=== PATIENT | female | born 1940 ===

== ENCOUNTER 2017-02-08 10:29 | Emergency (ER) | payer MEDICARE, MEDICAID ==
[2017-02-08 10:59] VITALS: O2SAT 98
[2017-02-08] MEDS ORDERED: Sodium Chloride 0.9% 1,000 ML IV STA (11:06)
--- NOTE | 2017-02-08 11:12 | ED PDOC ---
HPI: Female Pain Time Seen by Provider: 02/08/17 10:59 Chief Complaint (Nursing): Abdominal Pain History Per: Patient Onset/Duration Of Symptoms: Days (2) Current Symptoms Are (Timing): Still Present Severity: Mild Pain Scale Rating Of: 1 Quality Of Discomfort: Burning Associated Symptoms: Urinary Symptoms. denies: Fever, Nausea, Vomiting Additional Complaint(s): Frequent urination assoc with mild dysuria since yesterday. Feels dehydrated. No NVD. No fever or back pain Past Medical History Vital Signs: Last Vital Signs Temp Pulse Resp BP Pulse Ox 98 02/08/17 10:57 - Medical History PMH: Anxiety, Depression, Gastritis, HTN - Surgical History Surgical History: Appendectomy, Cholecystectomy - Family History Family History: States: Unknown Family Hx - Home Medications Home Medications: Ambulatory Orders Medication Instructions Recorded Escitalopram [Lexapro] 10 mg PO DAILY 08/23/16 Lisinopril [Zestril] 10 mg PO DAILY 08/23/16 amLODIPine [Norvasc] 5 mg PO DAILY 08/23/16 Albuterol/Ipratropium [Duoneb 3 3 ml INH RQID #30 neb 08/26/16 mg/0.5 mg (3 ml) UD] Latanoprost 0.005% Opht [Xalatan 1 drop OU HS #1 bottle 08/26/16 Opht] Levofloxacin [Levaquin] 500 mg PO DAILY #7 tablet 08/26/16 Methylprednisolone [Medrol Dose 4 mg PO DAILY #21 mg 08/26/16 Pack (21 tabs)] Ciprofloxacin HCl [Cipro] 500 mg PO BID #20 tab 02/08/17 - Allergies Allergies/Adverse Reactions: Allergies Allergy/AdvReac Type Severity Reaction Status Date / Time aspirin Allergy RASH Verified 02/08/17 10:56 martinez Allergy RASH Verified 02/08/17 10:56 FISH Allergy RASH Verified 02/08/17 10:56 grape Allergy RASH Verified 02/08/17 10:56 Iodine and Iodide Containing Allergy RASH Verified 02/08/17 10:56 Produc elgin Allergy RASH Verified 02/08/17 10:56 nut - unspecified [nut] Allergy RASH Verified 02/08/17 10:56 ORANGE Allergy RASH Verified 02/08/17 10:56 Penicillins Allergy RASH Verified 02/08/17 10:56 Sulfa (Sulfonamide Allergy RASH Verified 02/08/17 10:56 Antibiotics) jello Allergy RASH Uncoded 11/12/15 10:04 Review of Systems ROS Statement: Except As Marked, All Systems Reviewed And Found Negative Constitutional: Negative for: Fever Gastrointestinal: Negative for: Abdominal Pain Genitourinary Female: Positive for: Dysuria, Frequency Physical Exam - Reviewed Nursing Documentation Reviewed: Yes Vital Signs Reviewed: Yes - Physical Exam Appears: Positive for: Non-toxic, No Acute Distress Head Exam: Positive for: ATRAUMATIC, NORMAL INSPECTION, NORMOCEPHALIC Skin: Positive for: Normal Color, Warm, DRY Eye Exam: Positive for: EOMI, Normal appearance, PERRL ENT: Positive for: Normal ENT Inspection Neck: Positive for: Normal, Painless ROM Cardiovascular/Chest: Positive for: Regular Rate, Rhythm Respiratory: Positive for: CNT, Normal Breath Sounds Gastrointestinal/Abdominal: Positive for: Normal Exam, Bowel Sounds, Soft Back: Positive for: Normal Inspection Extremity: Positive for: Normal ROM Neurologic/Psych: Positive for: Alert, Oriented - Laboratory Results Result Diagrams: 02/08/17 11:40 - ECG O2 Sat by Pulse Oximetry: 98 Disposition - Clinical Impression Clinical Impression: UTI (urinary tract infection) - Patient ED Disposition Is Patient to be Admitted: No - Disposition Referrals: [facility]] Disposition: Routine/Home Disposition Time: 12:19 Condition: FAIR Prescriptions: Ciprofloxacin HCl [Cipro] 500 mg PO BID #20 tab Instructions: Urinary Tract Infection in Women (ED)
[2017-02-08 11:59] LABS: BASO % 0.5 % (0.0-2.0); EOS # 0.3 K/uL (0.0-0.7); EOS % 3.8 % (0.0-4.0); HEMATOCRIT 40.8 % (34.0-47.0); LYMPH # 2.3 K/uL (1.0-4.3); LYMPH % 28.9 % (20.0-40.0); MEAN CELL VOLUME 93.2 fl (81.0-99.0); MEAN CORPUSCULAR HEMOGLOBIN 30.7 pg (27.0-31.0); MEAN CORPUSCULAR HGB CONC 32.9 g/dL (33.0-37.0); MONO # 0.5 K/uL (0.0-0.8); NEUT # 4.7 K/uL (1.8-7.0); NEUT % 59.8 % (50.0-75.0); RED CELL DISTRIBUTION WIDTH 13.6 % (11.5-14.5); WHITE BLOOD COUNT 7.9 K/uL (4.8-10.8)
[2017-02-08 12:08] LABS: RBC URINE 15 /hpf (0-3); URINE BACTERIA MOD (<OCC); URINE BILIRUBIN NEGATIVE (NEGATIVE); URINE BLOOD SMALL (NEGATIVE); URINE COLOR YELLOW (YELLOW); URINE GLUCOSE (UA) NEG (Normal); URINE KETONE NEGATIVE (NEGATIVE); URINE LEUKOCYTE ESTERASE LARGE Leu/uL (Negative); URINE PROTEIN 30 mg/dL (NEGATIVE); URINE UROBILINOGEN 0.2-1.0 mg/dL (0.2-1.0); WBC CLUMPS FEW /hpf; WBC URINE 418 /hpf (0-5)
[2017-02-08 12:19] LABS: ALB/GLOB RATIO 1.3 (1.0-2.1); ALKALINE PHOSPHATASE 73 U/L (38-126); ALT/SGPT 41 U/L (9-52); AST/SGOT 30 U/L (14-36); BILIRUBIN,TOTAL 0.5 mg/dl (0.2-1.3); BLOOD UREA NITROGEN 21 mg/dl (7-17); CALCIUM 9.1 mg/dL (8.4-10.2); CARBON DIOXIDE 26 mmol/L (22-30); CHLORIDE 106 mmol/L (98-107); GFR AFRICAN-AMERICAN > 60; GLUCOSE,RANDOM 173 mg/dL (65-105); POTASSIUM 3.8 MMOL/L (3.6-5.0); SODIUM 143 mmol/l (132-148); TOTAL PROTEIN 7.7 G/DL (6.3-8.2)
== END 2017-02-08 13:12 | disposition home or self-care (01) ==
LOC: H.ER 10:29
DX: N39.0 Urinary tract infection, site not specified (principal); I10 Essential (primary) hypertension; Z86.59 Personal history of other mental and behavioral disorders
CPT/HCPCS: 80053; 81003; 85025; 87086; 99282; J7040

== ENCOUNTER 2017-11-19 09:37 | Emergency (ER) | payer MEDICARE, MEDICAID ==
[2017-11-19 09:41] VITALS: PULSE 97; TEMP 97; O2SAT 98
[2017-11-19 09:42] VITALS: BMI 23.6
[2017-11-19 09:49] VITALS: BP 132/64; RESP 20
--- NOTE | 2017-11-19 10:12 | ED PDOC ---
HPI: General Adult Time Seen by Provider: 11/19/17 09:53 Chief Complaint (Nursing): Abdominal Pain Chief Complaint (Provider): Abdominal Pain History Per: Patient History/Exam Limitations: no limitations Onset/Duration Of Symptoms: Sudden Onset Additional Complaint(s): 77 year old female with medical history of hypertension and asthma, presents to the emergency department for an evaluation of rectal bleeding when she saw blood in her toilet this morning during a bowel movement prior to arrival. She denied any abdominal pain, nausea, vomiting, chest pain, shortness of breath, dizziness or palpations. Patient brought along a stool sample in a pill bottle to ED. Of note, patient reported that she takes Naprosyn twice daily for arthritis with last dose taken 2 days ago. PMD: none provided Past Medical History Reviewed: Historical Data, Nursing Documentation, Vital Signs Vital Signs: Last Vital Signs Temp 97 F L 11/19/17 09:47 Pulse 97 H 11/19/17 09:47 Resp 20 11/19/17 09:47 BP 132/64 11/19/17 09:47 Pulse Ox 98 11/19/17 12:15 - Medical History PMH: Anxiety, Asthma, Depression, Gastritis, HTN - Surgical History Surgical History: Appendectomy, Cholecystectomy - Family History Family History: States: Unknown Family Hx - Social History Current smoker - smoking cessation education provided: No Ex-Smoker (has not smoked in the last 12 months): No Alcohol: None Drugs: Denies - Home Medications Home Medications: Ambulatory Orders Medication Instructions Recorded Escitalopram [Lexapro] 10 mg PO DAILY 08/23/16 Lisinopril [Zestril] 10 mg PO DAILY 08/23/16 amLODIPine [Norvasc] 5 mg PO DAILY 08/23/16 Albuterol/Ipratropium [Duoneb 3 3 ml INH RQID #30 neb 08/26/16 mg/0.5 mg (3 ml) UD] Latanoprost 0.005% Opht [Xalatan 1 drop OU HS #1 bottle 08/26/16 Opht] Levofloxacin [Levaquin] 500 mg PO DAILY #7 tablet 08/26/16 Methylprednisolone [Medrol Dose 4 mg PO DAILY #21 mg 08/26/16 Pack (21 tabs)] Ciprofloxacin HCl [Cipro] 500 mg PO BID #20 tab 02/08/17 - Allergies Allergies/Adverse Reactions: Allergies Allergy/AdvReac Type Severity Reaction Status Date / Time aspirin Allergy RASH Verified 11/19/17 09:46 martinez Allergy RASH Verified 11/19/17 09:46 FISH Allergy RASH Verified 11/19/17 09:46 grape Allergy RASH Verified 11/19/17 09:46 Iodine and Iodide Containing Allergy RASH Verified 11/19/17 09:46 Produc elgin Allergy RASH Verified 11/19/17 09:46 nut - unspecified [nut] Allergy RASH Verified 11/19/17 09:46 ORANGE Allergy RASH Verified 11/19/17 09:46 Penicillins Allergy RASH Verified 11/19/17 09:46 Sulfa (Sulfonamide Allergy RASH Verified 11/19/17 09:46 Antibiotics) jello Allergy RASH Uncoded 11/12/15 10:04 Review of Systems ROS Statement: Except As Marked, All Systems Reviewed And Found Negative Cardiovascular: Negative for: Chest Pain, Palpitations Respiratory: Negative for: Shortness of Breath Gastrointestinal: Positive for: Hematochezia. Negative for: Nausea, Vomiting, Abdominal Pain Neurological: Negative for: Dizziness Physical Exam - Reviewed Nursing Documentation Reviewed: Yes Vital Signs Reviewed: Yes - Physical Exam Appears: Positive for: Well, Non-toxic, No Acute Distress Head Exam: Positive for: ATRAUMATIC, NORMAL INSPECTION, NORMOCEPHALIC Skin: Positive for: Normal Color, Warm, Dry. Negative for: Rash Eye Exam: Positive for: Normal appearance ENT: Positive for: Normal ENT Inspection Neck: Positive for: Normal Cardiovascular/Chest: Positive for: Regular Rate, Rhythm, Chest Non Tender Respiratory: Positive for: Normal Breath Sounds. Negative for: Decreased Breath Sounds, Respiratory Distress Gastrointestinal/Abdominal: Positive for: Normal Exam, Soft. Negative for: Tenderness Rectal: Positive for: Other (warm, soft and brown stool with traces of blood) Extremity: Positive for: Normal ROM (upper/lower). Negative for: Pedal Edema ( bilateral), Calf Tenderness (bilateral) Neurologic/Psych: Positive for: Alert (x3), Oriented, Mood/Affect (pleasant). Negative for: Motor/Sensory Deficits - Laboratory Results Result Diagrams: 11/19/17 10:11 11/19/17 10:11 - ECG O2 Sat by Pulse Oximetry: 98 (RA) Pulse Ox Interpretation: Normal Medical Decision Making Medical Decision Making: Initial Impression: Rectal bleed Initial Plan: * Type and screen * CMP * CBC * PTT * PT * Occult blood, stool Time: 1025 --Labs reviewed: no significant abnormalities. Time: 1200 --Occult blood, stool: negative Scribe Attestation: Documented by Cindy Jackson, acting as a scribe for Shanthi Alfonso MD. Provider Scribe Attestation: All medical record entries made by the Scribe were at my direction and personally dictated by me. I have reviewed the chart and agree that the record accurately reflects my personal performance of the history, physical exam, medical decision making, and the department course for this patient. I have also personally directed, reviewed, and agree with the discharge instructions and disposition. Disposition - Clinical Impression Clinical Impression: Rectal bleeding - Patient ED Disposition Is Patient to be Admitted: No Doctor Will See Patient In The: Office Counseled Patient/Family Regarding: Diagnosis, Need For Followup - Disposition Referrals: Tonio Mireles MD [Family Provider] - Disposition: Routine/Home Disposition Time: 12:00 Condition: STABLE Instructions: Bloody Stools, Adult (DC) Forms: [facility] (Portuguese) Print Language: SOUTH AFRICAN - POA Present On Arrival: None
[2017-11-19 10:21] LABS: BASO % 0.5 % (0.0-2.0); EOS # 0.2 K/uL (0.0-0.7); EOS % 2.7 % (0.0-4.0); HEMOGLOBIN 14.5 g/dL (12.0-16.0); LYMPH # 2.2 K/uL (1.0-4.3); LYMPH % 24.1 % (20.0-40.0); MEAN CELL VOLUME 94.3 fl (81.0-99.0); MEAN PLATELET VOLUME 10.4 fl (7.2-11.7); MONO # 0.7 K/uL (0.0-0.8); MONO % 8.1 % (0.0-10.0); NEUT # 5.9 K/uL (1.8-7.0); NEUT % 64.6 % (50.0-75.0); NRBC % 0.1 % (0.0-0.0); RBC 4.52 Mil/uL (3.80-5.20); RED CELL DISTRIBUTION WIDTH 13.4 % (11.5-14.5); WHITE BLOOD COUNT 9.1 K/uL (4.8-10.8)
[2017-11-19 10:31] LABS: INR 1.1 (0.9-1.2); PARTIAL THROMBOPLASTIN TIME 30.4 Seconds (25.6-37.1); PROTHROMBIN TIME 11.7 Seconds (9.8-13.1)
[2017-11-19 10:33] LABS: ALB/GLOB RATIO 1.2 (1.0-2.1); ALBUMIN 4.4 g/dL (3.5-5.0); ALT/SGPT 37 U/L (9-52); AST/SGOT 25 U/L (14-36); BLOOD UREA NITROGEN 20 mg/dl (7-17); CALCIUM 9.6 mg/dL (8.4-10.2); GFR AFRICAN-AMERICAN > 60; GFR NON-AFRICAN AMERICAN > 60
== END 2017-11-19 12:42 | disposition home or self-care (01) ==
LOC: H.ER 09:37
DX: K62.5 Hemorrhage of anus and rectum (principal); I10 Essential (primary) hypertension; Z88.0 Allergy status to penicillin; F41.9 Anxiety disorder, unspecified
CPT/HCPCS: 80053; 85025; 85610; 85730; 86850; 86900; 99284; G0328